=== PATIENT | female | born 1965 | race African-American/Black ===

== ENCOUNTER 2022-08-16 14:26 | Outpatient (CLI) | payer OTHER | END 2022-08-16 14:27 | disposition home or self-care (01) | LOC: NAV RAD 14:26 | PROVIDERS: ATTEND Family Medicine | DX: Z02.71 Encounter for disability determination (principal); I50.9 Heart failure, unspecified; M17.0 Bilateral primary osteoarthritis of knee | CPT/HCPCS: 71046 ==